=== PATIENT | male | born 1990 | race Caucasian/White ===

== ENCOUNTER 2017-07-07 11:50 | Emergency (ER) | payer BC ==
[~2017-07-07] VITALS: Ht 175.3 cm; Wt 68.0 kg
[2017-07-07 11:51] VITALS: BP 173/86; PULSE 60; RESP 14; TEMP 98.6; O2SAT 100
[2017-07-07] MEDS ORDERED: chlordiazePOXIDE 25 MG CAP PO STA (12:27)
--- NOTE | 2017-07-07 12:35 | PD ---
HPI Chief Complaint: Medical Clearance Time Seen by Provider: 12:15 Travel History International Travel<30 days: No Contact w/Intl Traveler<30days: No Traveled to known affect area: No History of Present Illness HPI While 26-year-old man, here with wanting detox. He states that he has been using cocaine and drinking a lot, daily, for several years. He states that he wants to stop. He is not sought treatment in the area before. He has no somatic complaints. Denies any recent illness or injury. Denies s suicidal ideation. History Past Medical History Narrative Medical Depression treated when he was younger Alcoholism Tetanus Vaccination: Never Vaccinated Social History Alcohol Use: Yes Tobacco Use: Yes Allergies-Medications (Allergen,Severity, Reaction): Coded Allergies: No Known Allergies (Verified Allergy, Unknown, 07/07/17) Review of Systems Except as stated in HPI: all other systems reviewed are Neg Physical Exam Narrative GENERAL: Well-appearing 26-year-old man, no acute distress. SKIN: Focused skin assessment warm/dry. HEAD: Atraumatic. Normocephalic. EYES: Pupils equal and round. No scleral icterus. No injection or drainage. ENT: No nasal bleeding or discharge. Mucous membranes pink and moist. NECK: Trachea midline. No JVD. CARDIOVASCULAR: Regular rate and rhythm. No murmur appreciated. RESPIRATORY: No accessory muscle use. Clear to auscultation. Breath sounds equal bilaterally. GASTROINTESTINAL: Abdomen soft, non-tender, nondistended. Hepatic and splenic margins not palpable. MUSCULOSKELETAL: No obvious deformities. No clubbing. No cyanosis. No edema. NEUROLOGICAL: Awake and alert. No obvious cranial nerve deficits. Motor grossly within normal limits. Normal speech. PSYCHIATRIC: Flat affect. Although depressed mood. Denies SI. Data Data Last Documented VS Vital Signs Date Time Temp Pulse Resp B/P (MAP) Pulse Ox O2 Delivery O2 Flow Rate FiO2 07/07/17 13:13 161/78 (105) 100 07/07/17 11:51 98.6 60 14 Orders Orders Chlordiazepoxide (Librium) (07/07/17 12:27) Ed Discharge Order (07/07/17 12:34) MDM Medical Decision Making Medical Screen Exam Complete: Yes Emergency Medical Condition: Yes Differential Diagnosis Alcoholism, substance induced mood disorder, depression, SI, other Narrative Course Medical decision making 26-year-old man, no somatic complaints, seeking substance abuse treatment for cocaine and alcoholism. Referred to [facility]. Medically clear. Diagnosis Primary Impression: Alcoholism Referrals: [facility] Additional Instructions: Follow-up with [facility] for inpatient substance abuse treatment. Return to the emergency department for any suicidal ideation, worsening withdrawal symptoms, or any other new or worsening symptoms. Med/Other Pt SpecificInfo: No Change to Meds Disposition: 01 DISCHARGE HOME Condition: Stable Nick Montoya MD Jul 07, 2017 12:35
[2017-07-07 13:13] VITALS: BP 161/78
== END 2017-07-07 13:50 | disposition home or self-care (01) ==
LOC: NEPC 11:50
DX: F10.20 Alcohol dependence, uncomplicated (principal); Z72.0 Tobacco use
CPT/HCPCS: 99283